=== PATIENT | male | born 1975 ===

== ENCOUNTER 2017-06-12 10:00 | Emergency (ER) | payer OTHER ==
[2017-06-12 10:05] VITALS: BMI 27.4
--- NOTE | 2017-06-12 11:25 | ED PDOC ---
HPI: Abdomen Time Seen by Provider: 06/12/17 10:17 Chief Complaint (Nursing): Abdominal Pain Chief Complaint (Provider): Abdominal Pain History Per: Patient History/Exam Limitations: no limitations Onset/Duration Of Symptoms: Days (x 4) Current Symptoms Are (Timing): Still Present Location Of Pain/Discomfort: RUQ Additional Complaint(s): Mr. Metcalf is a 42 year old male who presents to the ED with abdominal pain ( RUQ) for 4 days with "accompanying nausea and vomiting." Patient states similar symptoms last year due to alcohol hepatitis. Patient admits to drinking 6-12 beers daily. Patient states symptoms are mild, nothing makes it better or worse. Denies fever, chills, chest pain, shortness of breath, smoking. Last hospital admission was last year. PMD: No Family Provider Past Medical History Reviewed: Historical Data, Nursing Documentation, Vital Signs Vital Signs: Last Vital Signs Temp 98.0 F 06/12/17 15:00 Pulse 74 06/12/17 15:00 Resp 14 06/12/17 15:00 BP 138/79 06/12/17 15:00 Pulse Ox 100 06/12/17 15:00 - Medical History PMH: Hepatitis (Alcohol) Denies: Chronic Kidney Disease - Family History Family History: States: Unknown Family Hx - Social History Current smoker - smoking cessation education provided: No Alcohol: > 2 Drinks/Day (6-10 drinks a day) Drugs: Denies - Immunization History Hx Tetanus Toxoid Vaccination: No Hx Influenza Vaccination: No Hx Pneumococcal Vaccination: No - Home Medications Home Medications: Ambulatory Orders Medication Instructions Recorded Famotidine [Pepcid] 20 mg PO BID #60 tab 01/10/16 LORazepam [Ativan] 1 mg PO BID #5 tab 01/10/16 - Allergies Allergies/Adverse Reactions: Allergies Allergy/AdvReac Type Severity Reaction Status Date / Time No Known Allergies Allergy Verified 01/08/16 16:31 Review of Systems ROS Statement: Except As Marked, All Systems Reviewed And Found Negative Constitutional: Negative for: Fever, Chills Cardiovascular: Negative for: Chest Pain Respiratory: Negative for: Shortness of Breath Gastrointestinal: Positive for: Nausea, Vomiting Physical Exam - Reviewed Nursing Documentation Reviewed: Yes Vital Signs Reviewed: Yes - Physical Exam Appears: Positive for: Well Head Exam: Positive for: ATRAUMATIC, NORMOCEPHALIC Skin: Positive for: Jaundice Eye Exam: Positive for: EOMI, PERRL, Scleral icterus ENT: Positive for: Normal ENT Inspection Neck: Positive for: Normal Cardiovascular/Chest: Positive for: Regular Rate, Rhythm Respiratory: Positive for: Normal Breath Sounds (lungs clear to auscultation bilaterally). Negative for: Respiratory Distress Gastrointestinal/Abdominal: Positive for: Normal Exam Back: Positive for: Normal Inspection. Negative for: L CVA Tenderness, R CVA Tenderness Extremity: Positive for: Normal ROM (Full ROM). 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 Negative for: ST/T Changes Rate: 64 O2 Sat by Pulse Oximetry: 99 (RA) Pulse Ox Interpretation: Normal - Progress ED Course And Treament: HISTORY: abd pain ruq COMPARISON: None. TECHNIQUE: Sonographic evaluation of the right upper quadrant of the abdomen. FINDINGS: LIVER: Measures 20.5 cm in length. Diffusely increased echogenicity of the liver parenchyma. Consistent with fatty infiltration. Smooth contour. No mass. No intrahepatic biliary dilatation. GALLBLADDER: Unremarkable. No gallstones. COMMON BILE DUCT: Measures 4 mm. No stones. No dilatation. PANCREAS: Unremarkable as visualized. No mass. No ductal dilatation. RIGHT KIDNEY: Measures 10.9 cm in length. Normal echogenicity. No calculus, mass, or hydronephrosis. AORTA: No aneurysmal dilatation. IVC: Unremarkable. OTHER FINDINGS: None . IMPRESSION: Hepatomegaly with diffuse fatty infiltration. No evidence of cholelithiasis or cholecystitis. Contacted [facility] resident will f/u in the clinic in 2 days. labs similarily elevated in the past. likely alcohol induced hepatitis. advise to abstain from etoh. repeat abd exam non tender. all of pt's questions were answered and pt agree's with plan. nsaids for pain Re-evaluation Time: 13:38 Condition: Improved Medical Decision Making Medical Decision Making: Time: 10:49 Impression(s): r/o cholecystitis Plan: - EKG - AMylase - CMP - Drug Screen, Urine - Lipase - Troponin I - CBC - Partial Thromboplastin Time - Prothrombin Time - Urinalysis - Abdomen Limited (GB Limited) Ultrasound Time: 11:07 - Ammonia Time: 11:14 - Abdomen with Chest X-Ray Time: 13:06 Abdomen Limited (GB Limited) Ultrasound FINDINGS: LIVER: Measures 20.5 cm in length. Diffusely increased echogenicity of the liver parenchyma. Consistent with fatty infiltration. Smooth contour. No mass. No intrahepatic biliary dilatation. GALLBLADDER: Unremarkable. No gallstones. COMMON BILE DUCT: Measures 4 mm. No stones. No dilatation. PANCREAS: Unremarkable as visualized. No mass. No ductal dilatation. RIGHT KIDNEY: Measures 10.9 cm in length. Normal echogenicity. No calculus, mass, or hydronephrosis. AORTA: No aneurysmal dilatation. IVC: Unremarkable. OTHER FINDINGS: None . IMPRESSION: Hepatomegaly with diffuse fatty infiltration. No evidence of cholelithiasis or cholecystitis. Scribe Attestation: Documented by Arian Rich, acting as a scribe for Walter Mariscal M.D. Provider Scribe Attestation: All medical record entries made by the Scribe were at my direction and personally dictated by me. I have reviewed the chart and agree that the record accurately reflects my personal performance of the history, physical exam, medical decision making, and the department course for this patient. I have also personally directed, reviewed, and agree with the discharge instructions and disposition. Disposition - Clinical Impression Clinical Impression: Alcoholic hepatitis - Patient ED Disposition Is Patient to be Admitted: No Counseled Patient/Family Regarding: Studies Performed, Diagnosis, Need For Followup, Rx Given - Disposition Referrals: [facility] (1 to 2 days) Disposition: Routine/Home Disposition Time: 13:41 Condition: GOOD Instructions: Toxic Hepatitis Forms: [employer] ([place])
[2017-06-12 11:50] LABS: BASO % 0.5 % (0.0-2.0); HEMOGLOBIN 15.5 g/dL (12.0-18.0); LYMPH # 1.5 K/uL (1.0-4.3); LYMPH % 41.5 % (20.0-40.0); MEAN CELL VOLUME 92.5 fl (80.0-94.0); MEAN CORPUSCULAR HEMOGLOBIN 31.8 pg (27.0-31.0); MEAN CORPUSCULAR HGB CONC 34.4 g/dL (33.0-37.0); MEAN PLATELET VOLUME 10.6 fl (7.2-11.7); MONO # 0.2 K/uL (0.0-0.8); NEUT # 1.8 K/uL (1.8-7.0); NRBC % 0.4 % (0.0-0.0); RBC 4.87 Mil/uL (4.40-5.90); RED CELL DISTRIBUTION WIDTH 13.4 % (11.5-14.5); WHITE BLOOD COUNT 3.6 K/uL (4.8-10.8)
[2017-06-12 12:00] LABS: ALB/GLOB RATIO 0.9 (1.0-2.1); ALBUMIN 3.8 g/dL (3.5-5.0); ALT/SGPT 226 U/L (21-72); AMYLASE 85 U/L (30-110); AST/SGOT 586 U/L (17-59); BLOOD UREA NITROGEN 10 mg/dl (9-20); CALCIUM 9.2 mg/dL (8.4-10.2); GFR AFRICAN-AMERICAN > 60; GFR NON-AFRICAN AMERICAN > 60; LIPASE 81 U/L (23-300)
[2017-06-12 12:04] LABS: PARTIAL THROMBOPLASTIN TIME 30.5 Seconds (25.6-37.1); PROTHROMBIN TIME 11.3 Seconds (9.8-13.1)
--- NOTE | 2017-06-12 13:08 | US ---
HISTORY: abd pain ruq COMPARISON: None. TECHNIQUE: Sonographic evaluation of the right upper quadrant of the abdomen. FINDINGS: LIVER: Measures 20.5 cm in length. Diffusely increased echogenicity of the liver parenchyma. Consistent with fatty infiltration. Smooth contour. No mass. No intrahepatic biliary dilatation. GALLBLADDER: Unremarkable. No gallstones. COMMON BILE DUCT: Measures 4 mm. No stones. No dilatation. PANCREAS: Unremarkable as visualized. No mass. No ductal dilatation. RIGHT KIDNEY: Measures 10.9 cm in length. Normal echogenicity. No calculus, mass, or hydronephrosis. AORTA: No aneurysmal dilatation. IVC: Unremarkable. OTHER FINDINGS: None . IMPRESSION: Hepatomegaly with diffuse fatty infiltration. No evidence of cholelithiasis or cholecystitis.
--- NOTE | 2017-06-12 14:57 | RAD ---
HISTORY: abd pain COMPARISON: Abdomen and pelvis CT with contrast 01/09/2016. FINDINGS: BOWEL: Nonobstructive bowel gas pattern appreciated. No free intrarenal gas. No suspicious intra-abdominal calcification. Advanced degenerative changes seen the bilateral sacroiliac and hip joints for the patient's age. BONES: As above. OTHER FINDINGS: None. IMPRESSION: Nonobstructive bowel gas pattern. 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
[2017-06-12 15:12] VITALS: BP 138/79; RESP 14; TEMP 98
[2017-06-12] MEDS ORDERED: Alum-Mag Hydrox-Simethicone Susp (30 mL) PO STA (15:22)
[2017-06-12] MEDS ORDERED: Alum-Mag Hydrox-Simethicone Susp (30 mL) ONE (15:31)
--- NOTE | 2017-06-13 18:09 | CARD ---
APPROVED REPORT EKG Measurement Heart [id number] <Conclusion> Sinus rhythm with occasional premature ventricular complexes Otherwise normal ECG
[2017-06-14 12:39] VITALS: PULSE 64; O2SAT 99
== END 2017-06-12 15:38 | disposition home or self-care (01) ==
LOC: H.ER 10:00
DX: K70.10 Alcoholic hepatitis without ascites (principal); I49.3 Ventricular premature depolarization